=== PATIENT | male | born 1975 | race Caucasian/White ===

== ENCOUNTER → 2017-06-27 | Day surgery (SDC) | payer OTHER ==
[~2017-06-27] VITALS: Ht 172.7 cm; Wt 82.6 kg
[~2017-06-27] MED LIST: LIDOCAINE 2% INJ 100 MG/5 ML SDV (FOR ANES.) As Ordered ONE; MELO15TA4 PO; NS 1,000 ML IV SCH; PROPOFOL 500 MG/50 ML VIAL As Ordered ONE
--- NOTE | 2017-06-27 12:32 | ROOR ---
Patient Name: Alec June Procedure Date: 06/27/2017 11:58 AM Date of : 1975 Age: 41 Room: [facility] Gender: Male Note Status: Finalized Procedure: Upper GI endoscopy Indications: Dysphagia Providers: Rasheed Dean MD Referring MD: López Sharma MD Requesting Provider: Medicines: Monitored Anesthesia Care Complications: No immediate complications. Procedure: Pre-Anesthesia Assessment: - Prior to the procedure, a History and Physical was performed, and patient medications and allergies were reviewed. The patient is competent. The risks and benefits of the procedure and the sedation options and risks were discussed with the patient. All questions were answered and informed consent was obtained. Patient identification and proposed procedure were verified by the physician, the nurse and the anesthesiologist in the procedure room. Mental Status Examination: alert and oriented. Airway Examination: normal oropharyngeal airway and neck mobility. Respiratory Examination: clear to auscultation. CV Examination: normal. Prophylactic Antibiotics: The patient does not require prophylactic antibiotics. Prior Anticoagulants: The patient has taken no previous anticoagulant or antiplatelet agents. ASA Grade Assessment: II - A patient with mild systemic disease. After reviewing the risks and benefits, the patient was deemed in satisfactory condition to undergo the procedure. The anesthesia plan was to use monitored anesthesia care (MAC). Immediately prior to administration of medications, the patient was re-assessed for adequacy to receive sedatives. The heart rate, respiratory rate, oxygen saturations, blood pressure, adequacy of pulmonary ventilation, and response to care were monitored throughout the procedure. The physical status of the patient was re-assessed after the procedure. The Endoscope was introduced through the mouth, and advanced to the second part of duodenum. The upper GI endoscopy was accomplished without difficulty. The patient tolerated the procedure well. Findings: Mucosal changes including ringed esophagus, longitudinal furrows, small-caliber esophagus, white plaques and circumferential folds were found in the entire esophagus. Esophageal findings were graded using the Eosinophilic Esophagitis Endoscopic Reference Score (EoE-EREFS) as: Stricture none (no stricture found). Biopsies were obtained from the proximal and distal esophagus with cold forceps for histology of suspected eosinophilic esophagitis. Verification of patient identification for the specimen was done by the physician and nurse using the patient's name, date and medical record number. Estimated blood loss was minimal. The entire examined stomach was normal. The duodenal bulb and second portion of the duodenum were normal. Impression: - Esophageal mucosal changes consistent with eosinophilic esophagitis. Biopsied. - Normal stomach. - Normal duodenal bulb and second portion of the duodenum. Recommendation: - Patient has a contact number available for emergencies. The signs and symptoms of potential delayed complications were discussed with the patient. Return to normal activities tomorrow. Written discharge instructions were provided to the patient. - Chopped diet. - Continue present medications. - Use Protonix (pantoprazole) 40 mg PO daily - to be taken contact center representative 1/2 hour before breakfast for 3 months. - - Take fluticasone -- 220mcg puffs - to be swallowed -- twice daily. - Return to GI clinic 1 - 2 weeks. Please call GI clinic @ [phone] for apppointment date and time. - Return to primary care physician. Rasheed Dean MD Rasheed Dean MD 06/27/2017 12:32:47 PM This report has been signed electronically. Number of Addenda: 0 Note Initiated On: 06/27/2017 11:58 AM Estimated Blood Loss: Estimated blood loss was minimal.
[2017-06-27 12:40] VITALS: BP 128/77
== END | disposition home or self-care (01) ==
LOC: M OPP 10:22
PROVIDERS: ATTEND Internal Medicine Gastroenterology
DX: R13.10 Dysphagia, unspecified (principal); K22.8 Other specified diseases of esophagus; K21.9 Gastro-esophageal reflux disease without esophagitis; M19.90 Unspecified osteoarthritis, unspecified site; M54.9 Dorsalgia, unspecified; Z79.899 Other long term (current) drug therapy

== ENCOUNTER → 2019-07-08 | Outpatient (REF) | payer OTHER ==
[~2019-07-08] MED LIST changes: -LIDOCAINE 2% INJ 100 MG/5 ML SDV (FOR ANES.) As Ordered ONE; +MELO15TA28 PO; -MELO15TA4 PO; -NS 1,000 ML IV SCH; -PROPOFOL 500 MG/50 ML VIAL As Ordered ONE
== END ==
LOC: M LAB LCGH 17:44
PROVIDERS: ATTEND Surgery
DX: K64.8 Other hemorrhoids (principal)

== ENCOUNTER 2020-12-29 09:25 | Day surgery (SDC) | payer OTHER ==
[~2020-12-29] VITALS: Ht 172.7 cm; Wt 82.6 kg
[~2020-12-29 09:25] MED LIST changes: +LIDOCAINE 2% 100MG/5ML SDV (FOR ANES.) As Ordered ONE; +NS 1,000 ML IV ONE; +propofoL 200 MG/20 ML VIAL As Ordered ONE
--- NOTE | 2020-12-29 10:49 | ROOR ---
Patient Name: Alec June Procedure Date: 12/29/2020 9:57 AM Date of : 1975 Age: 45 Room: [facility] Gender: Male Note Status: Finalized Procedure: Upper GI endoscopy Indications: Dysphagia, Follow-up of eosinophilic esophagitis Providers: Rasheed Dean MD Referring MD: YUAN PURVIS MD Requesting Provider: Medicines: Monitored Anesthesia Care Complications: No immediate complications. Procedure: Pre-Anesthesia Assessment: - Prior to the procedure, a History and Physical was performed, and patient medications and allergies were reviewed. The patient is competent. The risks and benefits of the procedure and the sedation options and risks were discussed with the patient. All questions were answered and informed consent was obtained. Patient identification and proposed procedure were verified by the physician, the nurse and the anesthesiologist in the procedure room. Mental Status Examination: alert and oriented. Airway Examination: normal oropharyngeal airway and neck mobility. Respiratory Examination: clear to auscultation. CV Examination: normal. Prophylactic Antibiotics: The patient does not require prophylactic antibiotics. Prior Anticoagulants: The patient has taken no previous anticoagulant or antiplatelet agents. ASA Grade Assessment: II - A patient with mild systemic disease. After reviewing the risks and benefits, the patient was deemed in satisfactory condition to undergo the procedure. The anesthesia plan was to use monitored anesthesia care (MAC). Immediately prior to administration of medications, the patient was re-assessed for adequacy to receive sedatives. The heart rate, respiratory rate, oxygen saturations, blood pressure, adequacy of pulmonary ventilation, and response to care were monitored throughout the procedure. The physical status of the patient was re-assessed after the procedure. The Endoscope was introduced through the mouth, and advanced to the second part of duodenum. The upper GI endoscopy was accomplished without difficulty. The patient tolerated the procedure well. Findings: Mucosal changes including longitudinal furrows and white plaques were found in the middle third of the esophagus and in the lower third of the esophagus. Esophageal findings were graded using the Eosinophilic Esophagitis Endoscopic Reference Score (EoE-EREFS) as: Rings Grade 1 Mild (subtle circumferential ridges seen on esophageal distension), Furrows Grade 1 Present (vertical lines with or without visible depth) and Stricture none (no stricture found). Biopsies were obtained from the proximal and distal esophagus with cold forceps for histology of suspected eosinophilic esophagitis. Verification of patient identification for the specimen was done by the physician and nurse using the patient's name, date and medical record number. Estimated blood loss was minimal. Patchy mild inflammation characterized by congestion (edema), erythema and granularity was found in the gastric antrum. Biopsies were taken with a cold forceps for Helicobacter pylori testing. The duodenal bulb and second portion of the duodenum were normal. Impression: - Esophageal mucosal changes suggestive of eosinophilic esophagitis. Biopsied. - Gastritis. Biopsied. - Normal duodenal bulb and second portion of the duodenum. Recommendation: - Patient has a contact number available for emergencies. The signs and symptoms of potential delayed complications were discussed with the patient. Return to normal activities tomorrow. Written discharge instructions were provided to the patient. - High fiber diet. - Continue present medications. - Await pathology results. - Telephone GI clinic for pathology results in 2 weeks. - Return to GI clinic if persistent symptoms or new symptoms. - Return to primary care physician. Procedure Code(s): --- Professional --- 64543, Esophagogastroduodenoscopy, flexible, transoral; with biopsy, single or multiple Diagnosis Code(s): --- Professional --- K22.8, Other specified diseases of esophagus K29.70, Gastritis, unspecified, without bleeding R13.10, Dysphagia, unspecified K20.0, Eosinophilic esophagitis CPT copyright 2019 [employer]. All rights reserved. The codes documented in this report are preliminary and upon staff radiation therapist review may be revised to meet current compliance requirements. Rasheed Dean MD Rasheed Dean MD 12/29/2020 10:48:58 AM Electronically signed by Rasheed Dean MD Number of Addenda: 0 Note Initiated On: 12/29/2020 9:57 AM Estimated Blood Loss: Estimated blood loss was minimal.
--- NOTE | 2020-12-29 11:04 | ROOR ---
Patient Name: Alec June Procedure Date: 12/29/2020 9:58 AM Date of : 1975 Age: 45 Room: [facility] Gender: Male Note Status: Finalized Procedure: Colonoscopy Indications: Screening for colorectal malignant neoplasm Providers: Rasheed Dean MD Referring MD: YUAN PURVIS MD Requesting Provider: Medicines: Monitored Anesthesia Care Complications: No immediate complications. Procedure: Pre-Anesthesia Assessment: - Prior to the procedure, a History and Physical was performed, and patient medications and allergies were reviewed. The patient is competent. The risks and benefits of the procedure and the sedation options and risks were discussed with the patient. All questions were answered and informed consent was obtained. Patient identification and proposed procedure were verified by the physician, the nurse and the anesthesiologist in the procedure room. Mental Status Examination: alert and oriented. Airway Examination: normal oropharyngeal airway and neck mobility. Respiratory Examination: clear to auscultation. CV Examination: normal. Prophylactic Antibiotics: The patient does not require prophylactic antibiotics. Prior Anticoagulants: The patient has taken no previous anticoagulant or antiplatelet agents. ASA Grade Assessment: II - A patient with mild systemic disease. After reviewing the risks and benefits, the patient was deemed in satisfactory condition to undergo the procedure. The anesthesia plan was to use monitored anesthesia care (MAC). Immediately prior to administration of medications, the patient was re-assessed for adequacy to receive sedatives. The heart rate, respiratory rate, oxygen saturations, blood pressure, adequacy of pulmonary ventilation, and response to care were monitored throughout the procedure. The physical status of the patient was re-assessed after the procedure. The Colonoscope was introduced through the anus and advanced to the terminal ileum, with identification of the appendiceal orifice and IC valve. The colonoscopy was performed without difficulty. The patient tolerated the procedure well. The quality of the bowel preparation was good. The terminal ileum, ileocecal valve, appendiceal orifice, and rectum were photographed. Scope insertion time was 2 minutes. Scope withdrawal time was 9 minutes. The total duration of the procedure was 12 minutes. Findings: The perianal and digital rectal examinations were normal. The terminal ileum appeared normal. Two sessile polyps were found in the rectum. The polyps were 2 to 3 mm in size. These polyps were removed with a cold biopsy forceps. Resection and retrieval were complete. Verification of patient identification for the specimen was done by the physician and nurse using the patient's name, date and medical record number. Estimated blood loss was minimal. Non-bleeding external and internal hemorrhoids were found during retroflexion. The hemorrhoids were small. Impression: - The examined portion of the ileum was normal. - Two 2 to 3 mm polyps in the rectum, removed with a cold biopsy forceps. Resected and retrieved. - Non-bleeding external and internal hemorrhoids. Recommendation: - Patient has a contact number available for emergencies. The signs and symptoms of potential delayed complications were discussed with the patient. Return to normal activities tomorrow. Written discharge instructions were provided to the patient. - High fiber diet. - Continue present medications. - Await pathology results. - Repeat colonoscopy in 5-10 years for surveillance based on pathology results. - Telephone GI clinic for pathology results in 2 weeks. - Return to primary care physician. Procedure Code(s): --- Professional --- 58036, Colonoscopy, flexible; with biopsy, single or multiple Diagnosis Code(s): --- Professional --- Z12.11, Encounter for screening for malignant neoplasm of colon K64.8, Other hemorrhoids K62.1, Rectal polyp CPT copyright 2019 [employer]. All rights reserved. The codes documented in this report are preliminary and upon special education resource room teacher review may be revised to meet current compliance requirements. Rasheed Dean MD Rasheed Dean MD 12/29/2020 11:03:46 AM Electronically signed by Rasheed Dean MD Number of Addenda: 0 Note Initiated On: 12/29/2020 9:58 AM Estimated Blood Loss: Estimated blood loss was minimal.
[2020-12-29 11:10] VITALS: BP 145/68
== END 2020-12-29 11:25 | disposition home or self-care (01) ==
LOC: M OPP 09:25
PROVIDERS: ATTEND Internal Medicine Gastroenterology
DX: Z12.11 Encounter for screening for malignant neoplasm of colon (principal); K63.5 Polyp of colon; K62.1 Rectal polyp; K64.8 Other hemorrhoids; K22.8 Other specified diseases of esophagus; K29.70 Gastritis, unspecified, without bleeding; K20.0 Eosinophilic esophagitis; R13.10 Dysphagia, unspecified

== ENCOUNTER → 2022-01-29 | Outpatient (CLI) | payer OTHER ==
[~2022-01-29] MED LIST changes: -LIDOCAINE 2% 100MG/5ML SDV (FOR ANES.) As Ordered ONE; -NS 1,000 ML IV ONE; -propofoL 200 MG/20 ML VIAL As Ordered ONE
[2022-01-29 14:05] LABS: PLATELET COUNT, AUTOMATED 266 10^3/uL (150-450)
[2022-01-29 14:20] LABS: INR 1.06; PROTHROMBIN TIME 14.2 SECONDS (12.7-14.5)
[2022-01-29 14:21] LABS: PARTIAL THROMBOPLASTIN TIME 29.5 SECONDS (25.9-37.0)
[2022-01-29 14:33] LABS: COLLAGEN EPINEPHRINE 112 SECONDS (74-162)
== END ==
LOC: M LAB 13:26
PROVIDERS: ATTEND Physician Assistant
DX: M47.892 Other spondylosis, cervical region (principal)

== ENCOUNTER → 2022-06-09 | Outpatient (CLI) | payer OTHER ==
[~2022-06-09] MED LIST changes: +LIDOCAINE 1% MDV 20ML VIAL As Ordered ONE; +TRIAMCINOLONE ACETONIDE SUSP 40 MG/ML VIAL (J3301) As Ordered ONE
== END ==
LOC: M IRPRO 13:21
PROVIDERS: ATTEND Physician Assistant
DX: M75.41 Impingement syndrome of right shoulder (principal)
CPT/HCPCS: 20550; 76942; J3301

== ENCOUNTER → 2024-01-04 | Outpatient (CLI) | payer OTHER ==
[~2024-01-04] MED LIST changes: -LIDOCAINE 1% MDV 20ML VIAL As Ordered ONE; -TRIAMCINOLONE ACETONIDE SUSP 40 MG/ML VIAL (J3301) As Ordered ONE
[2024-01-04 10:42] LABS: IMMUNOGLOBULIN A 111.2 MG/DL (40-350)
[2024-01-04 10:46] LABS: FREE T4 0.91 NG/DL (0.89-1.76); THYROID STIMULATING HORMONE 2.023 uIU/ML (0.55-4.78)
== END ==
LOC: M LAB 09:53
PROVIDERS: ATTEND Internal Medicine Gastroenterology
DX: R19.4 Change in bowel habit (principal); A09 Infectious gastroenteritis and colitis, unspecified; K58.0 Irritable bowel syndrome with diarrhea

== ENCOUNTER 2024-02-23 10:03 | Day surgery (SDC) | payer OTHER ==
[~2024-02-23] VITALS: Ht 175.3 cm; Wt 80.4 kg
[~2024-02-23 10:03] MED LIST changes: +PANT40TA29 PO; +ZOLP10TA2 PO
[2024-02-23] MEDS: NS 1,000 ML IV ONE (10:53)
[2024-02-23] MEDS ORDERED: propofoL 200 MG/20 ML VIAL As Ordered ONE (12:30)
[2024-02-23] MEDS ORDERED: LIDOCAINE 2% 100MG/5ML SDV (FOR ANES.) As Ordered ONE (12:30)
[2024-02-23] MEDS ORDERED: GLYCOPYRROLATE INJ 0.2 MG/ML 2 ML VIAL As Ordered ONE (12:53)
[2024-02-23 13:10] VITALS: TEMP 97.3
[2024-02-23 13:52] VITALS: BP 128/74; O2SAT 98
== END 2024-02-23 14:07 | disposition home or self-care (01) ==
LOC: M OPP 10:03
PROVIDERS: ATTEND Internal Medicine Gastroenterology
DX: K64.8 Other hemorrhoids (principal); K63.5 Polyp of colon; R19.7 Diarrhea, unspecified; K20.90 Esophagitis, unspecified without bleeding; K22.89 Other specified disease of esophagus; K20.0 Eosinophilic esophagitis; K30 Functional dyspepsia
CPT/HCPCS: 43239; 45380; 88305; J1596